=== PATIENT | female | born 1955 | race Caucasian/White ===

== ENCOUNTER → 2024-07-22 | Outpatient (CLI) | payer OTHER, SELFPAY ==
--- NOTE | 2024-07-22 15:09 | XR_ITS ---
Examination: Lumbar spine, 5 views Technique: Lumbar spine AP, lateral, coned lateral lower lumbar spine, bilateral obliques 5 views Exam date and time: July 22, 2024 1519 hours INDICATIONS: Low back pain radiating down the right leg beginning 6 years ago. FINDINGS: Moderate to advanced diffuse facet arthropathy No lumbar fracture Mild disc narrowing L5-S1 No spondylolisthesis IMPRESSION: No lumbar fracture Mild disc during L5-S1
--- NOTE | 2024-07-22 15:09 | XR_ITS ---
Examination:Right hip AP, lateral, AP pelvis 3 views Technique: Hip AP lateral, AP pelvis, 3 views Exam date and time:July 22, 2024 1519 hours INDICATIONS: Right hip pain beginning 6 years ago. FINDINGS: Advanced right hip osteoarthritis, severe joint space narrowing Extensive sclerosis and radiolucencies in the femoral head consistent with avascular necrosis Left hip bipolar hemiarthroplasty with satisfactory alignment IMPRESSION: Advanced right hip osteoarthritis Avascular necrosis right femoral head
== END | disposition home or self-care (01) ==
PROVIDERS: PCP Family Medicine; Referring Provider Family Medicine; Visit Provider Family Medicine
DX: M16.11 Unilateral primary osteoarthritis, right hip (principal); M87.851 Other osteonecrosis, right femur; M51.379 Other intervertebral disc degeneration, lumbosacral region without mention of lumbar back pain or lower extremity pain
CPT/HCPCS: 72110; 73502

== ENCOUNTER → 2024-07-24 | Outpatient (CLI) | payer OTHER, SELFPAY ==
[2024-07-24 11:01] LABS: Basophils % (Auto) 1 % (0-2.5); Eosinophils # (Auto) 0.5 Thou/mm3 (0.0-0.5); Eosinophils % (Auto) 9 % (0-10); Hematocrit 37.9 % (36.0-46.0); Hemoglobin 12.3 g/dL (12.0-16.0); Immature Granulocytes % (Auto) 0 % (0-0); Immature Granulocytes Auto 0.01 Thou/mm3 (0.00-0.00); Lymphocytes # (Auto) 1.5 Thou/mm3 (1.0-4.8); Lymphocytes % (Auto) 26 % (10-50); Mean Corpuscular HGB Conc 32.5 g/dl (31.0-37.0); Mean Corpuscular Hemoglobin 29.8 pg (25.0-35.0); Mean Corpuscular Volume 92 fL (80-100); Monocytes # (Auto) 0.6 Thou/mm3 (0.0-0.8); Monocytes % (Auto) 11 % (0-12); Neutrophils # (Auto) 3.1 Thou/mm3 (1.8-7.7); Neutrophils % (Auto) 54 % (37-80); Nucleated Red Blood Cell % 0 /100 WBC (0); Platelet Count 251 Thou/mm3 (140-440); RDW Standard Deviation 44.1 fL (36.4-46.3); Red Blood Count 4.13 Miln/mm3 (4.00-5.20); White Blood Count 5.7 Thou/mm3 (3.6-11.0)
[2024-07-24 11:26] LABS: T4 (Thyroxine) 6.3 mcg/dL (4.5-10.9)
[2024-07-24 11:58] LABS: Alanine Aminotransferase 19 U/L (10-49); Albumin, Serum 4.2 gm/dL (3.4-4.8); Albumin/Globulin Ratio 1.7 (1.2-2.2); Alkaline Phosphatase 53 U/L (46-116); Anion Gap 8 (7-16); Aspartate Amino Transferase 19 U/L (0-34); BUN/Creatinine Ratio 21 Ratio (12-20); Bilirubin,Total 0.6 mg/dL (0.3-1.2); Blood Urea Nitrogen 15 mg/dL (9-23); Calcium 9.6 mg/dL (8.3-10.6); Calcium (Corrected) 9.6 mg/dL (8.5-10.1); Carbon Dioxide 29.2 mMol/L (20.0-31.0); Cardiac Risk Estimate 2.1 RATIO (3.7-5.6); Chloride 105 mMol/L (98-107); Cholesterol 230 mg/dL (132-200); Creatinine (Component) 0.7 mg/dL (0.6-1.3); Globulin 2.5 gm/dL (2.3-3.5); Glucose 99 mg/dL (74-106); HDL Cholesterol 107 mg/dL (40-60); LDL Cholesterol,Calculated 108 mg/dL (0-130); Osmolality,Calculated 283 (275-295); Potassium 4.5 mMol/L (3.4-5.1); Sodium 142 mMol/L (136-145); Thyroid Stimulating Hormone 1.68 uIU/mL (0.55-4.78); Total Protein 6.7 gm/dL (5.7-8.2); Triglycerides 74 mg/dL (30-150); eGFR > 60 See Note
== END | disposition home or self-care (01) ==
LOC: COPL 09:36
PROVIDERS: PCP Family Medicine; Referring Provider Family Medicine; Visit Provider Family Medicine
DX: Z12.11 Encounter for screening for malignant neoplasm of colon (principal); G90.09 Other idiopathic peripheral autonomic neuropathy; M54.31 Sciatica, right side; R25.2 Cramp and spasm; R79.9 Abnormal finding of blood chemistry, unspecified
CPT/HCPCS: 36415; 80053; 80061; 84436; 84443; 85025

== ENCOUNTER → 2024-07-29 | Outpatient (CLI) | payer OTHER, SELFPAY ==
[2024-08-04 07:08] LABS: Fecal Globin Result NOT DETECTED (NOT DETECTED)
== END | disposition home or self-care (01) ==
LOC: SLDO 13:21
PROVIDERS: PCP Family Medicine; Referring Provider Family Medicine; Visit Provider Family Medicine
DX: G90.09 Other idiopathic peripheral autonomic neuropathy (principal); M54.31 Sciatica, right side; R25.2 Cramp and spasm; R79.9 Abnormal finding of blood chemistry, unspecified
CPT/HCPCS: 82274; G0328

== ENCOUNTER 2024-08-22 08:58 | Outpatient (AMB) | payer OTHER, SELFPAY ==
[2024-08-22 09:38] VITALS: BP 130/70; PULSE 79; RESP 17; TEMP 36.5; O2SAT 96; BMI 17.6
--- NOTE | 2024-08-22 09:38 | ORTHONT_ITS ---
Vital signs 08/22/24 09:38 Height 1.79 m Height Method Stated Weight 56.416 kg Weight Measurement Method Standing Scale BMI 17.6 BP 130/70 Blood Pressure Source Automatic Cuff Blood Pressure Location Right Upper Arm Position Sitting Respiration 17 Pulse 79 Pulse Source Monitor Temp 97.7 F Temp Source Temporal Artery Scan Pulse Oximetry (%) 96 Oxygen Delivery Method Room Air Med/Allergies Allergies & Medications Allergies No Known Allergies Allergy (Verified 08/22/24 09:40) Medication Reconciliation No Known Home Medications 08/22/24 [History Confirmed 08/22/24] Exam Exam Patient is in no acute distress and is cooperative with the examination today. Patient has a normal mood and affect. Breathing is nonlabored. In no respiratory distress. Bilateral extremities were evaluated and demonstrates sensation intact to light touch. Palpable pedal pulses are present. No significant edema is present. Right hip is tender to palpation. She has 0 degrees of internal rotation. Leg lengths are approximately equal. She is a positive Stinchfield and positive logroll Left hip incision is clean dry intact. Range of motion is full Right hip x-rays demonstrate complete obliteration of the femoral acetabular joint space Assessment and Plan Problem List (1) Hip osteoarthritis: Status: Acute Plan Patient is a 68-year-old female with severe right hip arthritis of significant severity. We will hold off on the surgery as she is getting major dental reconstruction and I recommend that she get this done first. She will call us back and we will schedule her for hip replacement as she is failed conservative treatment already. 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 Intake Visit Data Collection New Patient or Established: New Patient (never been to [facility]) Reason for Visit:: Rt hip pain Electronics Processing Supervisor Required: No PCP or OBGYN visit in last 3 months: Yes Hx Now: No Do You Feel Safe at Home: Yes Authorities Contacted: N/A Questionairres Past Medical History Past Medical History Have you ever been diagnosed with any of the following: Respiratory Problems Smoking: No Smoking Cessation Counseling: No Smoking Exposure: No Subjective Visit Visit for: new patient and hip (right hip ) Immunization / Flu Flu Vaccine in the Last 12 Months: No Flu Vaccine Exclusion Criteria: Refused by Patient History of Present Illness Chief complaint: Right hip pain Lily is a pleasant 68-year-old female with severe right hip pain and right hip arthritis of significant severity. The pain has been ongoing for many years and she was told at the time of the left Hip replacement that she would need to get the right hip fixed. She is been holding off. She reports of note that she is post to get major dental reconstruction soon. I discussed with her that this would delay the surgery likely. She has failed conservative treatment and takes a lot of natural anti-inflammatories Personal History Red flag PMH: none Pain Pain level (0-10): 8 Pain duration: 2 years Pain location: inside (medial) Pain quality: aching Pain timing: increases with activity Associated signs & symptoms: numbness Ambulatory data Ambulatory device: none Walking distance (minutes): 5 Treatments Number of previous injections: 1 Improvement with previous injections: Yes Number of Physical Therapy sessions: 3 Improvement with PT: Yes Improvement with NSAIDS: n/a Review of Systems Review of Systems: All systems negative unless otherwise noted in HPI.
== END 2024-08-22 09:56 | disposition home or self-care (01) ==
LOC: HODSRG 08:58
PROVIDERS: PCP Family Medicine; Referring Provider Family Medicine; Supervising Provider Orthopaedic Surgery Adult Reconstructive Orthopaedic Surgery; Visit Provider Orthopaedic Surgery Adult Reconstructive Orthopaedic Surgery
DX: M16.11 Unilateral primary osteoarthritis, right hip (principal); M25.551 Pain in right hip
CPT/HCPCS: 99203; G0463

== ENCOUNTER → 2024-09-30 | Outpatient (CLI) | payer OTHER, SELFPAY ==
[2024-09-30 09:48] LABS: Creatine Kinase 105 U/L (34-171)
[2024-09-30 10:00] LABS: Glucose Estimated Average 108 mg/dL (80-131); Hemoglobin A1C 5.4 % Hgb (4.8-6.0)
[2024-09-30 10:14] LABS: Vitamin B12 504 pg/mL (211-911); Vitamin D 25 Hydroxy Total 33.2 ng/mL (7.3-40.2)
[2024-10-08 06:39] LABS: ANA Pattern NUCLEAR, HOMOGENEOUS; ANA Screen, IFA POSITIVE (NEGATIVE); Aldolase* 3.7 U/L (< OR = 8.1)
== END | disposition home or self-care (01) ==
LOC: COPL 08:10
PROVIDERS: PCP Family Medicine; Referring Provider Psychiatry & Neurology Neurology; Visit Provider Psychiatry & Neurology Neurology
DX: R20.2 Paresthesia of skin (principal)
CPT/HCPCS: 36415; 82085; 82306; 82550; 82607; 83036; 86038

== ENCOUNTER → 2024-10-20 | Outpatient (CLI) | payer OTHER, SELFPAY ==
--- NOTE | 2024-10-20 | XR_ITS ---
Examination: PA lateral chest 2 views TECHNIQUE: Upright PA lateral chest 2 views Date and time: October 20, 2024, 1156 hours INDICATIONS: Coughing beginning 2 weeks ago. 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
== END | disposition home or self-care (01) ==
LOC: CDIM 11:45
PROVIDERS: PCP Family Medicine; Referring Provider Family Medicine; Visit Provider Family Medicine
DX: R91.8 Other nonspecific abnormal finding of lung field (principal)
CPT/HCPCS: 71046

== ENCOUNTER → 2024-10-29 | Outpatient (CLI) | payer OTHER, SELFPAY ==
[2024-10-29 13:20] LABS: Sed Rate (ESR) 12 mm/hr (0-30)
[2024-10-29 13:35] LABS: C-Reactive Protein < 0.5 mg/dL (0.0-0.9); Thyroid Stimulating Hormone 1.19 uIU/mL (0.55-4.78)
[2024-10-29 15:24] LABS: RA Screen Negative (Negative)
[2024-11-05 11:19] LABS: Sjogren's antibody (SS-A) <1.0 NEG AI (<1.0 NEGATIVE)
[2024-11-06 06:37] LABS: ANA Pattern NUCLEAR, SPECKLED; ANA Screen, IFA POSITIVE (NEGATIVE); Complement Component C3* 104 mg/dL (83-193); Complement Component C4c* 19 mg/dL (15-57); DNA (ds) Antibody* <1 IU/mL; Scl-70 Antibody* <1.0 NEG AI (<1.0 NEGATIVE); Sjogren's Antibody (SS-B) <1.0 NEG AI (<1.0 NEGATIVE)
== END | disposition home or self-care (01) ==
LOC: COPL 12:38
PROVIDERS: PCP Family Medicine; Referring Provider Physician Assistant; Visit Provider Physician Assistant
DX: R76.0 Raised antibody titer (principal)
CPT/HCPCS: 36415; 84443; 85652; 86038; 86039; 86140; 86160; 86225; 86235; 86430